=== PATIENT | male | born 1945 | race Hispanic/Latino ===

== ENCOUNTER → 2018-06-13 | Outpatient (CLI) | payer MEDICARE | END | disposition home or self-care (01) | LOC: SHCH 08:34 | PROVIDERS: ATTEND Internal Medicine Cardiovascular Disease | DX: I08.1 Rheumatic disorders of both mitral and tricuspid valves (principal); I10 Essential (primary) hypertension; I48.2 Chronic atrial fibrillation; Z95.0 Presence of cardiac pacemaker | CPT/HCPCS: 93306 ==

== ENCOUNTER → 2018-06-18 | Outpatient (CLI) | payer MEDICARE ==
[~2018-06-18] MED LIST: AMLO10TA7 PO; CANA300T PO; CARV25TA PO; DIGO0.12 PO; DONE10TA36 PO; GEMF600T5 PO; INSU3INS5 SQ; LOSA100T58 PO; METF-446 PO; MVI PO; ROSU20TA30 PO; SUCR1TAB2 PO; VALS160T29 PO; VITAMIN D PO
== END | disposition home or self-care (01) ==
LOC: SHCH 08:17
PROVIDERS: ATTEND Internal Medicine Cardiovascular Disease
DX: I71.4 Abdominal aortic aneurysm, without rupture (principal); I70.90 Unspecified atherosclerosis
CPT/HCPCS: 93978

== ENCOUNTER 2018-07-02 05:22 | Day surgery (SDC) | payer MEDICARE ==
[2018-06-30 15:53] VITALS: BP 141/80
[2018-06-30 15:53] LABS: BASOPHILS % (AUTO) 0.8 % (0.0-5.0); EOSINOPHILS % (AUTO) 1.1 % (0.0-8.0); HEMATOCRIT 47.3 % (42-54); LYMPHOCYTES % (AUTO) 25.6 % (21.0-51.0); MEAN CORPUSCULAR HEMOGLOBIN 29.5 pg (27.0-33.0); MEAN CORPUSCULAR HGB CONC 33.6 g/dL (32.0-36.0); MEAN CORPUSCULAR VOLUME 87.8 fL (79-99); MONOCYTES % (AUTO) 4.5 % (3.0-13.0); NUCLEATED RED BLOOD CELLS 0.1 % (0.0-0.19); PLATELET COUNT (AUTO) 339 K/uL (130-400); RED BLOOD CELL COUNT(AUTO) 5.39 MIL/uL (4.50-6.20); RED CELL DISTRIBUTION WIDTH 14.3 % (11.0-15.5); WHITE BLOOD COUNT (AUTO) 12.1 K/uL (4.8-10.8)
[2018-06-30 16:07] LABS: INR 1.03 (0.85-1.15); PARTIAL THROMBOPLASTIN TIME 29.6 SEC (26.3-35.5); PROTHROMBIN TIME 10.8 SEC (9.6-11.6)
[2018-06-30 16:10] LABS: CREATININE 1.3 mg/dL (0.5-1.5); POTASSIUM 3.6 mmol/L (3.5-5.1)
--- NOTE | 2018-07-01 12:28 | NUR ---
ABNORMAL LABS REPORTED ABNORMAL LABS TO [facility]. REPORTED WBC 12.1, CREATINE 1.3, BUN 22. NO NEW ORDERS.
[2018-07-02] VITALS (10 sets, daily range): BP systolic 123–175; BP diastolic 53–98
[~2018-07-02] VITALS: Ht 170.2 cm; Wt 77.8 kg
[2018-07-02] MEDS ORDERED: SODIUM CHLORIDE 0.9% 1000ML 1,000 ML IV ONE (07:10)
[2018-07-02] MEDS ORDERED: BUPIVACAINE/PF 0.25% 50ML VIAL IJ ONE (09:58)
[2018-07-02] MEDS ORDERED: CEFAZOLIN SODIUM 1 GM VIAL ONE (09:58)
[2018-07-02] MEDS ORDERED: MIDAZOLAM HCL 1 MG/ML 2ML VIAL ONE ×2 (09:59→10:20)
[2018-07-02] MEDS ORDERED: MEPERIDINE-PF 50 MG/ML SYG ONE (09:59)
[2018-07-02] MEDS ORDERED: LIDOCAINE HCL 1% MDV 50ML VIAL ONE (09:59)
[2018-07-02] MEDS ORDERED: ONDANSETRON HCL 4 MG/2 ML VIAL IV PRN (11:15)
[2018-07-02] MEDS ORDERED: TEMAZEPAM 30 MG CAP PO PRN (11:15)
[2018-07-02] MEDS ORDERED: ACETAMINOPHEN-CODEINE 300/30MG TAB PO PRN ×2 (11:15)
[2018-07-02] MEDS ORDERED: ACETAMINOPHEN 325 MG TAB PO PRN ×2 (11:15)
--- NOTE | 2018-07-02 14:30 | NUR ---
gave report vida ortiz rn , no concerns voiced.
--- NOTE | 2018-07-02 14:35 | NUR ---
REPORT REPORT RECEIVED FROM Roxanne CRISOSTOMO RN. PT RESTING IN BED. PRESSURE DRSG TO LEFT UPPER CHEST. DRY AND INTACT. SOFT TO TOUCH. NO BLEEDING, OOZING NOTED. AT BEDSIDE.
--- NOTE | 2018-07-02 14:43 | NUR ---
GAVE REPORT TO ANA COLLINS FROM DAY PATIENT, NO CONCERNS VOICED.
--- NOTE | 2018-07-02 14:50 | NUR ---
DISCHARGE DISCHARGE INSTRUCTIONS GIVEN TO PT'S . PRESCRIPTION CALLED IN TO [facility] [phone]. SPOKE TO [facility] PHARMACIST. DOXYCYCLINE HYCLATE 100MG PO EVERY 12 HOURS FOR 5 DAY. PT WILL MANAGER INTERNAL PRESCRIPTION. SLING APPLIED TO LEFT ARM. INSTRUCTED PT AND PTS ON IMPORTANCE OF FOLLOWING DR. MENDOZA'S POST OP INSTRUCTIONS. INSTRUCTED ON IMPORTANCE OF LEAVING SITE CLEAN AND DRY AND NOT TO LIFT ARMS UP ABOVE HEAD. BOTH VERBALIZED UNDERSTANDING.
== END 2018-07-02 15:40 | disposition home or self-care (01) ==
LOC: DAH 05:22
PROVIDERS: ATTEND Internal Medicine Cardiovascular Disease
DX: I48.2 Chronic atrial fibrillation (principal); R00.1 Bradycardia, unspecified; E11.9 Type 2 diabetes mellitus without complications; I10 Essential (primary) hypertension; E78.5 Hyperlipidemia, unspecified; F03.90 Unspecified dementia, unspecified severity, without behavioral disturbance, psychotic disturbance, mood disturbance, and anxiety
CPT/HCPCS: 33227; 36415 ×2; 80048; 80162; 82948 ×2; 85025; 85610; 85730; 93005; A4606; C1786; J0690; J2175; J2250 ×2; J3490 ×2; J7030; 99156; 99157

== ENCOUNTER 2018-07-06 13:46 | Emergency (ER) | payer MEDICARE | END 2018-07-06 14:28 | disposition home or self-care (01) | LOC: EDH 13:46 | DX: Z48.01 Encounter for change or removal of surgical wound dressing (principal); I10 Essential (primary) hypertension; E11.9 Type 2 diabetes mellitus without complications; I25.10 Atherosclerotic heart disease of native coronary artery without angina pectoris; Z95.0 Presence of cardiac pacemaker | CPT/HCPCS: 99281 ==